=== PATIENT | male | born 1995 | race African-American/Black ===

== ENCOUNTER 2022-12-16 09:53 | Emergency (ER) | payer OTHER ==
[~2022-12-16] VITALS: Ht 185.4 cm; Wt 82.0 kg
[2022-12-16 10:40] VITALS: BP 125/69
== END 2022-12-16 14:05 | disposition home or self-care (01) ==
LOC: ER 10:05
DX: Z48.02 Encounter for removal of sutures (principal)
CPT/HCPCS: 99281; Z7610